=== PATIENT | male | born 1970 | race Caucasian/White ===

== ENCOUNTER 2023-01-18 16:18 | Emergency (ER) | payer MEDICAID, BC ==
[~2023-01-18] VITALS: Ht 180.3 cm; Wt 79.4 kg
[~2023-01-18 16:18] MED LIST: PHEN60TA43 PO
[2023-01-18 16:41] VITALS: BP 144/85; PULSE 86; RESP 15; TEMP 97.7; O2SAT 97
[2023-01-18] MEDS ORDERED: ACET-8905 PO (18:54)
[2023-01-18] MEDS ORDERED: IBUP-2213 PO (18:54)
== END 2023-01-18 20:30 | disposition home or self-care (01) ==
LOC: MED 16:18
DX: M25.561 Pain in right knee (principal); M71.21 Synovial cyst of popliteal space [Baker], right knee; Z79.899 Other long term (current) drug therapy
CPT/HCPCS: 99281